=== PATIENT | male | born 1970 | race Caucasian/White ===

== ENCOUNTER 2020-03-20 08:50 | Emergency (ER) | payer OTHER, BC ==
[~2020-03-20] VITALS: Ht 180.3 cm; Wt 105.0 kg
[~2020-03-20 08:50] MED LIST: ACTOS45 MG OR; AMOXICILLIN/CL875 MG PO; BL ADULT ASA81 MG OR; CARAFATE1 GM PO; CIPROFLOXACN500 MG PO; CRESTOR40 MG OR; DIOVAN HC1 PO; DIOVAN160 MG PO; FLONASE NASAL50 MCG; FLUCONAZOLE100 MG PO; FLUTICASONE50 MCG; HUMALOG100 MG/ML SC; HUMULIN 70/30 SC; HUMULIN R1 M1 SC; INSULIN SC; INSULIN XX; JANUVIA100 MG PO; LANTUS100 MG/ML; LANTUS100 MG/ML SC; LEVEMIR SC; LISINOPRIL5 MG PO; LOSARTAN POT25 MG PO; METFORMIN1000 MG PO; METFORMIN500 MG PO; METO100T50 PO; METRONIDAZOL500 MG PO; NAPROSYN500 MG PO; NO HOME MEDS; OMEPRAZOLE20 MG OR; SIMVASTATIN20 MG PO; TOPAMAX100 MG PO; TRAZODONE150 MG PO; TRAZODONE50 MG PO; TRICOR145 MG OR; ULTRAM50 M1 OR; VIAGRA50 MG PO; ZOCOR PO; [UNRECOGNIZED DRUG - REMARK]
[2020-03-20] MEDS ORDERED: OMEPRAZOLE DR40 MG PO (11:00)
[2020-03-20] MEDS ORDERED: TRAZODONE HYDR150 MG PO (11:01)
[2020-03-20] MEDS ORDERED: VICTOZA18 MG/3 ML SC (11:02)
[2020-03-20] MEDS ORDERED: LOSARTAN POTAS100 MG PO (11:02)
[2020-03-20] MEDS ORDERED: SIMVASTATIN40 MG PO (11:03)
[2020-03-20] MEDS ORDERED: LEVEMIR100 UNIT/M SC (11:05)
[2020-03-20] MEDS ORDERED: NOVOLIN 70/30 SC (11:05)
[2020-03-20 11:20] VITALS: BP 177/79
== END 2020-03-20 11:20 | disposition home or self-care (01) | DRG 556 ==
LOC: ED 08:50
DX: M25.512 Pain in left shoulder (principal); M54.2 Cervicalgia; E11.9 Type 2 diabetes mellitus without complications; V49.40XA Driver injured in collision with unspecified motor vehicles in traffic accident, initial encounter; Z79.84 Long term (current) use of oral hypoglycemic drugs